=== PATIENT | female | born 1975 | race Caucasian/White ===

== ENCOUNTER → 2021-09-01 09:18 | Outpatient (BNVA) | payer SELFPAY | PROVIDERS: Visit Provider Physician Assistant | DX: Z02.79 Encounter for issue of other medical certificate (principal) ==

== ENCOUNTER 2022-01-30 13:59 | Emergency (ER) | payer OTHER, SELFPAY ==
--- NOTE | 2022-01-30 15:40 | PC.NURSE ---
patient called to triage x 3 with no answer
== END 2022-01-30 15:50 | disposition left against medical advice (07) ==
PROVIDERS: Emergency Provider Emergency Medicine
DX: R51.9 Headache, unspecified (principal)

== ENCOUNTER 2025-03-26 13:24 | Emergency (ER) | payer OTHER, SELFPAY ==
--- NOTE | ~2025-03-26 | XR_ITS ---
EXAMINATION: XR LUMBOSACRAL SPINE CLINICAL INFORMATION: back pain COMPARISON: None available. TECHNIQUE: Three views of the lumbosacral spine. FINDINGS: The vertebral bodies and posterior elements are normal. The disc spaces are preserved and the vertebral alignment is normal. The paraspinal soft tissues are normal. There are cholecystectomy clips present. XR/XR lumbar spine 2-3V IMPRESSION: Normal examination of the lumbar spine. Electronically signed by: Amarjit Andre MD 03/26/2025 02:16 PM EDT
[2025-03-26 13:51] VITALS: BP 129/77; PULSE 88; RESP 16; TEMP 35.9; O2SAT 95; BMI 44.4
--- NOTE | 2025-03-26 13:51 | ED_ITS ---
HPI - Back Pain/Injury General Chief Complaint: Back Pain/Injury Stated Complaint: back pain Time Seen by Provider: 03/26/25 15:33 Source: patient and senior applications analyst (anguillan) Mode of arrival: ambulatory Limitations: language barrier (Jamaican) History of Present Illness ED Provider: MICHELLE HUNT PA-C HPI Narrative: 49 year old Jamaican speaking female with no significant pmhx who presents with low back pain which began this morning. The pain started when she was bending over to get dressed. The pain is localized to her lower back and radiates down lateral thighs. 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 She reports Motrin given in triage which did not help her pain. She did not trial any other medications PSYCHOLOGIST RESEARCH ASSISTANT. Denies blunt injury/trauma. D enies bowel or bladder incontinence or retention, saddle anesthesia, numbness/ tingling /weakness of the lower extremities. Denies dysuria, hematuria. No history of spinal surgery. No history of IV drug use. Related Data Previous Rx's ?Medication ?Instructions ?Recorded cyclobenzaprine 5 mg tablet 5 mg PO Q8H PRN muscle spasm #7 03/26/25 tabs lidocaine 5 % topical patch 1 patch topical DAILY #15 ea 03/26/25 (Lidoderm) Allergies Allergy/AdvReac Type Severity Reaction Status Date / Time No Known Allergies Allergy Verified 03/26/25 13:53 [No Known Allergies*] Review of Systems Review of Systems: Constitutional: No fever, chills, fatigue, night sweats, weight changes ENT/Mouth: No ear pain, hearing loss, nasal congestion, sinus pain, rhinorrhea, sore throat Eyes: No eye pain, swelling, redness, vision changes, discharge Cardio: No chest pain, palpitations, SIMPSON, orthopnea, peripheral edema Pulm: No SOB, cough, sputum, wheezing, dyspnea, hemoptysis GI: No nausea, vomiting, hematemesis, abdominal pain, diarrhea, constipation, hematochezia, melena : No irregular bleeding, dysuria, frequency, urgency, hesitancy, hematuria, flank pain, urinary flow changes, urinary incontinence or retention MSK: +back pain, No neck pain, joint pain, myalgias Skin: No lesions, rashes Neuro: No weakness, numbness, paresthesias, LOC, dizziness, headache All other systems reviewed and are negative. PMFSH Past Medical History Attestation statement: The following information was validated with the patient. Source: old records reviewed and nursing notes reviewed Social History Social History Advance Directives: No Advance Directives Information Provided: No Physical Exam Vital Signs: Vital Signs: Last Vital Signs Temp 96.7 F L 03/26/25 17:12 Pulse 88 03/26/25 17:12 Resp 16 03/26/25 17:12 BP 129/77 03/26/25 17:12 Pulse Ox 95 03/26/25 17:12 O2 Del Method Room Air 03/26/25 17:12 BMI result Body Mass Index 44.4 vital signs stable General: Well appearing, in no acute distress. Skin: Warm, dry, intact. No rashes or lesions. Head: Normocephalic, atraumatic. EENT: Hearing is intact b/l. Conjunctiva clear. PERRLA. EOM intact. Moist mucous membranes.? Cardiac: Chest wall symmetric. RRR. Lungs: Normal respiratory effort without accessory muscle use. CTA bilaterally Abdomen: Soft, non-tender, non-distended. No rebound tenderness or guarding. Positive BS x4. no cvat. Back: +tender to palpation of right lumbar paraspinal musculature, no midline tenderness or step-off deformity Ext: Upper and lower extremities atraumatic, without tenderness, deformity, swelling or erythema. Neuro: AOx3. Normal speech. Strength 5/5 intact throughout. No saddle anesthesia. Sensation intact to light touch. NV intact distally. Ambulating with steady gait. Psych: Appropriate mood and affect. Responds appropriately to questions. Course Course Course Narrative: This is an RME: Additional HPI, ROS, PE not included below will be deferred to primary provider. RME assessment and note performed by: Derek Boyle PA-C 49 yo female without significant history presents to the ED due to lower back pain x this AM, was putting on her underwear when lower back spasmed and has had worsening pain since this. States she has had previous episode many years ago but this pain feels similar. Endorses sharp stabbing pain when walking Has not taken medication PSYCHOLOGIST RESEARCH ASSISTANT for pain management. Denies recent injury/falls. Denies saddle parasthesia, urine/bowel incontinence. PE: R side lumbar paraspinal TTP, no bony step offs, no midline tenderness Plan: Lumbar XR, Medicating with 600mg Ibuprofen in triage Reevaluation(s) Reevaluation #1: x-ray lumbar spine unremarkable. Exam consistent with muscle spasm. Medicated with Flexeril and lidocaine in the ED. pain meds sent to pharmacy. ambulating with steady gait. she has a ride home today. Patient has remained stable throughout ED visit today. Discussed worrisome signs and symptoms and when to return to the ED. All questions answered at this time. Patient is agreeable with disposition and stable for discharge. Medications Administered Discontinued Medications Generic Name Dose Route Start Last Admin Trade Name Freq PRN Reason Stop Dose Admin Cyclobenzaprine HCl 10 mg 03/26/25 15:55 03/26/25 17:05 Cyclobenzaprine Hcl 10 Mg Tablet PO 03/26/25 15:56 10 mg ONCE ONE Administration Ibuprofen 600 mg 03/26/25 13:56 03/26/25 14:59 Ibuprofen 600 Mg Tablet PO 03/26/25 13:57 600 mg ONCE ONE Administration Lidocaine 1 patch 03/26/25 15:55 03/26/25 17:05 Lidocaine 4 % Patch Adh..Patch TRANSDERMA 03/26/25 15:56 1 patch ONCE ONE Administration Protocol Medical Decision Making Medical Decision Making MDM Narrative: 49 year old Jamaican speaking female with no significant pmhx who presents with low back pain which began this morning. vital signs stable, afebrile. she is nontoxic appearing and in NAD. on exam, she is tender to palpation of right lumbar paraspinal musculature, no midline tenderness or step-off deformity. NV intact distally. no saddle anesthesia. Concern for MSK sprain/strain, muscle spasm, fracture, subluxation, disc herni ation, sciatica. Unlikely cord compression, cauda equina, Guillain-[place], epidural abscess. Plan for imaging, pain control and disposition. Differential Diagnosis Differential Diagnoses: The differential diagnosis associated with the presentation includes as above Admission/Observation Not indicated. Independent Interpretation I performed an independent interpretation of an: Plain X-Ray Interpretation: xr lumbar spine without fracture Radiology Impression Discussion of test interpretation with radiology: I have reviewed the radiologist's reading. Radiologist Impression: Date of Service: 03/26/25 Procedure(s): XR lumbar spine 2-3V Accession Number(s): [id number] cc: Derek Boyle PA-C; Physician,Unknown ~ EXAMINATION: XR LUMBOSACRAL SPINE CLINICAL INFORMATION: back pain COMPARISON: None available. TECHNIQUE: Three views of the lumbosacral spine. FINDINGS: The vertebral bodies and posterior elements are normal. The disc spaces are preserved and the vertebral alignment is normal. The paraspinal soft tissues are normal. There are cholecystectomy clips present. XR/XR lumbar spine 2-3V IMPRESSION: Normal examination of the lumbar spine. Electronically signed by: Amarjit Andre MD 03/26/2025 02:16 PM EDT RP Workstation: [id number] External Record Review External record reviewed: Inpatient record Prescription Management I considered prescription management with: Pain Medication and Other (Muscle relaxer, lido patch) Social Determinants Patient?s care significantly limited by Social Determinants of Health including: Other Social Determinant of Health Critical Care Time Critical Care Time Critical Care Time: No Discharge Plan Discharge Clinical Impression: Lumbar paraspinal muscle spasm Patient Disposition: Home, Self-Care Instructions: Muscle Spasm (ED), Back Pain (ED) Additional Instructions: You were evaluated in the Emergency Department today for your back pain.? Your evaluation did not show signs of medical conditions requiring emergent intervention at this time. Avoid bending, lifting, or twisting. Use ice several times per day for 20 minutes at a time for the next 48 hours and then change to heat. I recommend you take 600mg ibuprofen every 6 hours or tylenol 650mg every 6 hours as needed for pain. If needed, you can alternate these medications so that you take one medication every 3 hours. For example, at noon take ibuprofen, then at 3pm take tylenol, then at 6pm take ibuprofen. Flexeril is a muscle relaxer. Take this at night as it makes you drowsy. Do not drive, drink alcohol, or operate machinery while taking it. Lidoderm patches are numbing patches. Apply to painful areas. Please schedule an appointment for follow-up with your primary care provider this week for further evaluation of your symptoms. Return to the Emergency Department if you experience worsening back pain, difficulty walking, fevers, numbness, tingling, incontinence, or any other con cerning symptoms. In the case of an emergency call 911. Prescriptions: New lidocaine [Lidoderm] 5 % adhesive patch,medicated 1 patch topical DAILY Qty: 15 0RF Rx Instructions: leave on most painful area for up to 12 hrs cyclobenzaprine 5 mg tablet 5 mg PO Q8H PRN (Reason: muscle spasm) Qty: 7 0RF Referrals: Physician,Unknown J [Primary Care Provider] - Stand Alone Forms: Work/School Release Interventions: ED Discharge Assessment Last Done: 03/26/25 17:12 Discharge Date/Time: 03/26/25 17:12 Print Language: Jamaican
[2025-03-26] MEDS: Ibuprofen 600 MG TABLET PO (14:59)
--- OUTSIDE RECORDS SUMMARY | 2025-03-26 15:44 | XMS_ITS | Clinical Summary ---
Author Organization [facility] Address [address] [place] [address] Care Team Providers Care Electromechanical Assembly Technician Name Role Phone Carine Nunn MEAT AND SEAFOOD MANAGER-C Primary Care Provider + Source Comments PLEASE NOTE, if this patient is a minor, it may be UNLAWFUL to discuss sensitive information that is contained in these records (such as FAMILY PLANNING, MENTAL HEALTH or SUBSTANCE ABUSE) with the minor patient's parent or other person without the patient's specific authorization.[facility] Allergies No known active allergies Medications hydrocortisone 2.5 % creamIndications :Eczema, unspecified type Apply topically 2 (two) times daily 30 g 3 0 Active omeprazole (PRILOSEC) [address] capsuleIndicatio ns:Gastroesophag eal reflux disease without esophagitis Take 1 Cap by mouth every morning before breakfast 30 Cap 2 0 Active famotidine (PEPCID) 40 mg tabletIndication s:heartburn,prn Take 1 Tab by mouth nightly at bedtime Indications: heartburn, prn 30 Tab 2 0 Active Active Problems Problem Noted Date Diagnosed Date ASCUS with positive high risk HPV cervical 02/24 Heartburn 11/01/2018 History of hiatal hernia 11/01/2018 Family History Medical History Relation Name Comments Diabetes Father Heart Problems Father Hyperlipidemia Father Hypertension Father Alzheimer's Disease Maternal Grandfather Thyroid Disease Maternal Grandfather Diabetes Maternal Grandmother Heart Problems Maternal Grandmother Cancer Mother gastric cancer Diabetes Paternal Grandmother Relation Name Status Comments Father Alive Maternal Grandfather Maternal Grandmother Mother Paternal Grandfather Paternal Grandmother Social History Tobacco Use Types Packs/Day Years Used Date Smoking Tobacco: Never Smokeless Tobacco: Never Alcohol Use Standard Drinks/Week Comments No 0 (1 standard drink = 0.6 oz pur e alcohol) Social Connections Answer Date Recorded Connectedness 0 07/22/2020 Financial Resource Strain Answer Date R ecorded Financial Resource Strain 0 2019 Stress Answer Date Recorded Stress 0 07/22/2020 Physical Activity Answer Date Recorded Physical Activity 0 06/16/2019 Food Insecurity Answer Date Recorded Food 0 07/22/2020 Transportation Needs Answer Date Record ed Transportation 0 07/22/2020 Housing Stability Answer Date Recorded Housing 0 07/22/2020 Safety and Environment Answer Date Lester rded Safety 0 07/22/2020 Utilities Answer Date Recorded Utilities 0 07/22/2020 Employment Answer Date Recorded Stress 0 07/22/2020 Comments No Sex and Gender Information Value Date Recorded Sex Assigned at Female 09/25/2018 6:08 AM PST Legal Sex Female 7:34 AM PST Gender Identity Female 09/25/2018 6:08 AM PST Sexual Orientation Straight 09/25/2018 6: 08 AM PST Last Filed Vital Signs Vital Sign Reading Time Taken Comments Blood Pressure 142/73 05/03/2020 3:04 PM EDT Pulse 70 05/03/2020 3:04 PM EDT Temperature 36.4 ??C (97.6 ??F) 04/28/2020 4:10 PM ED T Respiratory Rate 16 05/03/2020 3:04 PM EDT Oxygen Saturation - - Inhaled Oxygen Concentration - - Weight 90.7 kg (200 lb) 05/03/2020 3:04 PM EDT Height 157.5 cm (5' 2 ) 05/03/2020 3:04 PM EDT Body Mass Index 36.58 05/03/2020 3:04 PM EDT Plan of Treatment Not on file Insurance [employer] [facility] Member Subscriber Plan / Payer (Ef fective 2020-Present) Name:Venus Trevino Parvin Relation to Subscriber:Self Name:Venus Trevino IIrineo Payer ID:[id number] Type:Indemnity Address: [facility] [address] [place] [address] Care Teams Electromechanical Assembly Technician Relationship Specialty Start Date End Date Carine Nunn FNP-C [address] [place] [address] [facility] - General 07/12/22
[2025-03-26] MEDS: Cyclobenzaprine HCl 10 MG TABLET PO (17:05)
[2025-03-26] MEDS: Lidocaine 4 % Patch ADH..PATCH 1 PATCH TRANSDERMA (17:05)
[2025-03-26 17:12] VITALS: BP 129/77; PULSE 88; RESP 16; TEMP 35.9; O2SAT 95
== END 2025-03-26 17:12 | disposition home or self-care (01) ==
PROVIDERS: Emergency Provider Emergency Medicine
DX: M62.838 Other muscle spasm (principal); M54.50 Low back pain, unspecified
CPT/HCPCS: 72100; 99283

== ENCOUNTER → 2025-03-26 13:56 | Outpatient (BNV) | payer OTHER, SELFPAY | PROVIDERS: Visit Provider Radiology Diagnostic Radiology | DX: M54.50 Low back pain, unspecified (principal) | CPT/HCPCS: 72100 ==

== ENCOUNTER 2025-05-04 04:50 | Emergency (ER) | payer OTHER, SELFPAY ==
[2025-05-04 04:57] VITALS: BP 145/88; PULSE 66; RESP 16; TEMP 36.5; O2SAT 97; BMI 41.3
--- OUTSIDE RECORDS SUMMARY | 2025-05-04 05:08 | XMS_ITS | Clinical Summary ---
Author Organization [facility] Address [address] [place] [address] Phone Care Team Providers Care Graffiti Cleaner Name Role Phone Taylor Alexandre MD Primary Care Provider [phone] Allergies No known active allergies Medications clotrimazole-be tamethasone (LOTRISONE) 1-0.05 % cream Apply topically to affected area twice daily for no more than 10 days Active omeprazole (PriLOSEC) [address] capsule Take 1 Cap by mouth daily for 360 days. Active norethindrone (BLAS,LOUANN,H EAT,MICRONOR ) 0.35 mg tablet Take 1 tablet (0.35 mg total) by mouth 1 (one) time each day. 28 tablet 11 5 11/13/19 26 Active Active Problems Problem Noted Date Diagnosed Date Language barrier 10/02/2024 Dysplasia of cervix, high grade OMERO 2 01/27/2021 Overview (08/15/2024): Colpo 05/2019 - OMERO 2 LEEP 07/2019- @ [facility] Colpo 07/2020- Negtive for Dyplasia 01/27/2021 PAP Neg cytology, Neg HPV Abnormal perimenopausal bleeding 01/20/2021 Overview (08/15/2024): 01/19/2021 Impression Thickened endometrium probably reflecting endometrial hyperplasia. Hypermature left ovarian follicle. Single uterine fibroid. 02/21/[address] Sheppard- Results- BENIGN Encounters Date Type Department Care Team Description 04/09/2025 9:45 AM EDT Consult Bariatric Surgery - [address] [place] [address] Connor Dumont MD Class 3 severe obesity due to excess calories with body mass index (BMI) of 40.0 to 44.9 in adult, unspecified whether serious comorbidity present (CMS/[facility] V24, [facility] V28) (Primary Dx) from Last 3 Months Surgical History Surgery Date Site/Laterality Comments TUBAL LIGATION PROCEDURE: HISTORICAL TUBAL LIGATION VAGINOSCOPY 2019 PROCEDURE: NV COLPOSCOPY CERVIX VAG LOOP ELTRD BX CERVIX; COMMENT: Brittney Medical History Medical History Date Comments Patient denies medical problems DX:Patient denies medical problems Family History Medical History Relation Name Comments Murdered Brother 1 Hypertension Brother 2 Coronary artery disease Father Stomach cancer Mother Breast cancer Neg Hx Ovarian cancer Neg Hx Relation Name Status Comments Brother 1 Brother 2 Alive Father Alive Mother Social History Tobacco Use Types Packs/Day Years Used Date Smoking Tobacco: Never Smokeless Tobacco: Never Alcohol Use Standard Drinks/Week Comments No 0 (1 standard drink = 0.6 oz pur e alcohol) Comments No Sex and Gender Information Value Date Recorded Sex Assigned at Female 11/06/2024 9:45 AM EST Legal Sex Female 5:46 AM EST Gender Identity Female 11/06/2024 9:45 AM EST Sexual Orientation Not on file 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5 cm (5' 2 ) 04/09/2025 9:59 AM EDT Body Mass Index 41.34 04/09/2025 9:59 AM EDT Plan of Treatment Upcoming Encounters Date Type Department Care Team (Late st Contact Info) Description 06/25/2025 9:30 AM EDT Nutrition Bariatric Surgery - [place] [address] [facility] [address] [place] [address] Scott Natalie, RD [address] [facility] [address] [place] [address] Health Maintenance Due Date Last Done Comments Breast Cancer Screening 1975 COVID-19 Vaccine (#1) 1980 DTaP,Tdap,and Td Vaccines (1 - Tdap) 1994 Hepatitis A Vaccines (1 of 2 - Risk 2-dose series) 1994 Hepatitis B Vaccines (1 of 3 - 19+ 3-dose series) 1994 Pneumococcal Vaccine: 50+ Years (1 of 2 - PCV) 1994 Pneumococcal Vaccine: Pediatrics (0 to 5 Years) and At-Risk Patients (6 to 64 Years) (1 of 2 - PCV) 1994 Zoster Vaccines (1 of 2) 1994 Colorectal Cancer Screening: Colonoscopy 10/01/2022 Depression Screening 10/01/2022 HIV Screening 10/01/2022 Social Influencers of Health Screening 10/01/2022 Cholesterol Screening (Lipid Panel) 09/25/2023 09/25/2018 Influenza Vaccine (#1) 2025 Cervical Cancer Screening: HPV 10/02/2029 1 12/03/2023, 01/27/2021 Hepatitis C Screening Completed 09/04/2023 HIB Vaccines Aged Out No longer eligi ble based on patient's age to complete this topic HPV Vaccines Aged Out No longer eligi ble based on patient's age to complete this topic IPV Vaccines Aged Out No longer eligi ble based on patient's age to complete this topic MMR Vaccines Aged Out No longer eligi ble based on patient's age to complete this topic Meningococcal ACWY Vaccine Aged Out N o longer eligible based on patient's age to complete this topic Meningococcal B Vaccine Aged Out No l onger eligible based on patient's age to complete this topic RSV Immunization Patients Under 20 months Aged Out No longer eligible b ased on patient's age to complete this topic Varicella Vaccines Aged Out No longer eligible based on patient's age to complete this topic Procedures Procedure Name Priority Date/Time Associated Diagnosis Comments HPV WITH REFLEX GENOTYPE Routine 10/02/2024 10:28 AM EST Screening for cervical cancer Encounter for well woman exam with routine gynecological exam HEPATITIS C SCREENING Routine 09/04/2023 from Last 3 Months or Most Recently Relevant to Health Maintenance Results * HPV with reflex genotype (10/02/2024 10:28 AM EST) HPV Negative Negative LAB MICROBIOLOGY METHOD 10/03/2024 2:02 PM EST [facility] Brushing/Spatula Cervix uteri structure / Unknown 10/02/2024 10:28 AM EST 10/03/2024 7:52 AM EST Norma Moya CNM LAB MOLECULAR DIAGNOSTICS ORD ERABLES Final Result [facility] [address] [place] [address], * Hepatitis C Screening (09/04/2023) Hepatitis C Screening Abstracted Historical Provider HEALTH MAINTENANCE Final Result from Last 3 Months or Most Recently Relevant to Health Maintenance Insurance [facility] MEDICAID ADVANTAGE Care Teams Graffiti Cleaner Relationship Specialty Start Date End Date Taylor Alexandre MD [address] [place] [address] PCP - General Internal Medicine 11/12/20
[2025-05-04 05:16] LABS: MANUAL DIFF FLAG NO
[2025-05-04 05:17] LABS: Hematocrit 31.1 % (37.0-47.0); Hemoglobin 10.5 g/dl (12.0-16.0); Imm Gran Abs Auto 0.01 X10*3/uL (0.00-0.03); Imm Gran Pct Auto 0.1 % (0.0-0.4); Lymphocytes Absolute Auto 2.6 X10*3/uL (1.2-4.9); Mean Corpuscular HGB Conc 33.8 g/dl (31.0-35.0); Mean Corpuscular Hemoglobin 27.6 pg (27.0-33.0); Mean Corpuscular Volume 81.6 fL (80.0-98.0); NRBC Abs Auto 0.000 X10*3/uL (0.0-0.012); NRBC Pct Auto 0.0 /100WBC (0.0-0.2); Platelet Count 291 X10*3/uL (160-400); Red Blood Count 3.81 X10*6/uL (4.20-5.50); White Blood Count 7.7 X10*3/uL (4.8-10.8)
[2025-05-04 05:41] LABS: Alanine Aminotransferase 16 U/L (0-31); Albumin Level 3.9 g/dL (3.5-5.0); Alkaline Phosphatase 95 U/L (39-117); Anion Gap 13 (12-20); Aspartate Amino Transferase 16 U/L (5-31); Blood Urea Nitrogen 11 mg/dL (9-16); Calcium 8.4 mg/dL (8.4-10.2); Carbon Dioxide 21 mmol/L (22-29); Chloride 108 mmol/L (96-108); Creatinine Clr Calc Pharmacy 96.7; Estimated Glomerular Filt Rate > 60; Potassium 3.9 mmol/L (3.3-5.1); Sodium 138 mmol/L (135-145); Total Protein 6.8 g/dL (6.5-8.0)
[2025-05-04 05:53] LABS: Resp Syncy Virus RNA Qual PCR NEGATIVE (Negative); SARS COV2 PCR INHOUSE NEGATIVE (Negative)
--- NOTE | 2025-05-04 07:48 | ED_ITS ---
HPI - General Adult General Chief complaint: General Medical Stated complaint: body aches Time Seen by Provider: 05/04/25 07:44 Source: patient Mode of arrival: ambulatory Limitations: no limitations History of Present Illness HPI narrative: This is a very pleasant 50 years old female patient presented to the emergency department complaining of body ache she states she feels like her body's in fire. But no systemic symptoms no fever no vomiting Onset (ago): week(s) (2) Location: upper extremity and lower extremity Radiation: non-radiation Severity: mild Severity scale (1-10): 4 Quality: burning Pain Consistency: intermittent Relieving factors: none Exacerbating factors: none Associated symptoms: denies other symptoms Related Data Previous Rx's ?Medication ?Instructions ?Recorded cyclobenzaprine 5 mg tablet 5 mg PO Q8H PRN muscle spa sm #7 03/26/25 tabs lidocaine 5 % topical patch 1 patch topical DAILY #15 ea 03/26/25 (Lidoderm) Allergies Allergy/AdvReac Type Severity Reaction Status Date / Time No Known Allergies (No Known Allergy Verified 05/04/25 05:01 Allergies*) Review of Systems 2 Constitutional: Constitutional: Reports no additional constitutional complaints ENT: Reports system reviewed and no additional complaints, except as documented Cardiovascular: Cardiovascular: Reports no additional cardiovascular complaints Hematologic/Lymphatic: Hematologic/Lymphatic: Reports no additional hematologic/lymphatic complaints [facility] Past Medical History Attestation statement: The following information was validated with the patient. [facility] Narrative: Patient denies any major medical problems Source: unable to obtain Social History Social History Advance Directives: No Advance Directives Information Provided: No Do you have a plan to hurt others: No Plan Physical Exam ED Vital Signs: Vital Signs - 24 hr 05/04/25 04:57 05/04/25 08:13 Temperature 97.7 F 98.5 F Pulse Rate 66 74 Respiratory Rate 16 16 Blood Pressure 145/88 H 144/67 H Pulse Oximetry 97 97 Oxygen Delivery Method Room Air Room Air BMI result Body Mass Index 41.3 She looks well not toxic Const General: cooperative Nutritional Appearance: well nourished Orientation/consciousness: patient oriented x3 Limitations: no limitations HENMT Head: Yes normal to inspection Ears: hearing grossly normal bilaterally Face and sinus: Yes normal facial exam Mouth: Normal oral and palatal mucosa present Neck Neck: Yes normal visual inspection Chest Chest palpation & inspection: normal inspection of the chest Resp Effort & Inspection: normal respiratory effort Auscultation: clear to auscultation bilaterally Cardio Jugular venous distension: no JVD Rate: regular rate Rhythm: regular rhythm GI Inspection: Yes normal to inspection Palpation (GI): Soft to palpation, not firm and nontender Skin General skin exam: no rashes or lesions noted Lesions: no lesions Rashes: no rashes Neuro General: patient oriented x3 Medical Decision Making Medical Decision Making [facility] Narrative: Patient is here complaining of body aches weakness we will check blood work Differential Diagnosis Differential Diagnoses: The differential diagnosis associated with the presentation includes Anemia/viral syndrome Admission/Observation Consideration of admission/observation: Escalation of care including admission/observation considered Lab Data 05/04/25 05:12 05/04/25 05:12 Labs: Lab Results 05/04/25 Range/Units 05:12 WBC 7.7 (4.8-10.8) X10*3/uL RBC 3.81 L (4.20-5.50) X10*6/uL Hgb 10.5 L (12.0-16.0) g/dl Hct 31.1 L (37.0-47.0) % MCV 81.6 (80.0-98.0) fL MCH 27.6 (27.0-33.0) pg MCHC 33.8 (31.0-35.0) g/dl RDW 14.6 (11.0-16.0) % Plt Count 291 (160-400) X10*3/uL MPV 9.0 L (9.4-12.3) fL Immature Gran % (Auto) 0.1 (0.0-0.4) % Neut % (Auto) 55.3 (45-73) % Lymph % (Auto) 34.5 (20-40) % Logan % (Auto) 7.6 (2-11) % Eos % (Auto) 2.4 (0-4) % Baso % (Auto) 0.1 (0-2) % Lymph # (Auto) 2.6 (1.2-4.9) X10*3/uL Logan # (Auto) 0.6 (0.1-1.2) X10*3/uL Eos # (Auto) 0.2 (0.0-0.4) X10*3/uL Baso # (Auto) 0.0 (0.0-0.2) X10*3/uL Abs Immat Gran (auto) 0.01 (0.00-0.03) X10*3/uL Absolute Neuts (auto) 4.2 (2.0-8.3) x10*3/uL Absolute Nucleated RBC 0.000 (0.0-0.012) X10*3/uL Nucleated RBC % (auto) 0.0 (0.0-0.2) /100WBC Sodium 138 (135-145) mmol/L Potassium 3.9 (3.3-5.1) mmol/L Chloride 108 (96-108) mmol/L Carbon Dioxide 21 L (22-29) mmol/L Anion Gap 13 (12-20) BUN 11 (9-16) mg/dL Creatinine 0.78 (0.5-1.4) mg/dL Estim Creat Clear Calc 96.7 Estimated GFR > 60 Random Glucose 104 (60-115) mg/dL Calcium 8.4 (8.4-10.2) mg/dL Total Bilirubin 0.4 (0.0-1.0) mg/dL AST 16 (5-31) U/L ALT 16 (0-31) U/L Alkaline Phosphatase 95 (39-117) U/L Total Protein 6.8 (6.5-8.0) g/dL Albumin 3.9 (3.5-5.0) g/dL Influenza Type A (PCR) NEGATIVE (Negative) Influenza Type B (PCR) NEGATIVE (Negative) RSV RNA Qual (PCR) NEGATIVE (Negative) SARS-CoV-2 RNA (RT-PCR) NEGATIVE (Negative) Discharge Plan Discharge Clinical Impression: Generalized body aches Patient Disposition: Home, Self-Care Instructions: Pain Management (ED) Additional Instructions: Please follow-up with your primary care physician call today and make an appointment you could take ibuprofen 800 mg every 8 hours as needed for pain Prescriptions: No Action lidocaine [Lidoderm] 5 % adhesive patch,medicated 1 patch topical DAILY Qty: 15 0RF Rx Instructions: leave on most painful area for up to 12 hrs cyclobenzaprine 5 mg tablet 5 mg PO Q8H PRN (Reason: muscle spasm) Qty: 7 0RF Referrals: Adilia Mcdaniels MD [Primary Care Provider, Internal Medicine] Stand Alone Forms: Work/School Release Interventions: ED Discharge Assessment Last Done: 05/04/25 08:13 Discharge Date/Time: 05/04/25 08:15 Print Language: [place]
[2025-05-04 08:13] VITALS: BP 144/67; PULSE 74; RESP 16; TEMP 36.9; O2SAT 97
== END 2025-05-04 08:15 | disposition home or self-care (01) ==
PROVIDERS: Emergency Provider Emergency Medicine; PCP Internal Medicine
DX: M79.10 Myalgia, unspecified site (principal); Z03.818 Encounter for observation for suspected exposure to other biological agents ruled out
CPT/HCPCS: 36415; 80053; 85025; 87637; 99283